=== PATIENT | male | born 1985 | race Caucasian/White ===

== ENCOUNTER 2017-04-16 11:27 | Emergency (ER) | payer BC ==
[~2017-04-16] VITALS: Ht 180.3 cm; Wt 81.8 kg
[~2017-04-16 11:27] MED LIST: NO HOME MEDICATIONS; PHENERGAN 25 TA25 MG PO; PHENERGAN25 MG RC
[2017-04-16 11:47] VITALS: TEMP 98.8
[2017-04-16 13:17] VITALS: BP 123/73; PULSE 50
== END 2017-04-16 13:23 | disposition home or self-care (01) ==
LOC: COL.ER 11:27
DX: S70.361A Insect bite (nonvenomous), right thigh, initial encounter (principal); Z87.892 Personal history of anaphylaxis; W57.XXXA Bitten or stung by nonvenomous insect and other nonvenomous arthropods, initial encounter
CPT/HCPCS: J1100; J1200